=== PATIENT | female | born 1980 | race Caucasian/White ===

== ENCOUNTER 2025-03-20 16:57 | Emergency (ER) | payer OTHER ==
[2025-03-21] MEDS ORDERED: MECL25CH38 PO (05:41)
== END 2025-03-20 18:16 | disposition left against medical advice (07) ==
LOC: ER 16:57
DX: R42 Dizziness and giddiness (principal); Z53.21 Procedure and treatment not carried out due to patient leaving prior to being seen by health care provider

== ENCOUNTER 2025-03-21 04:55 | Emergency (ER) | payer OTHER ==
[~2025-03-21] VITALS: Ht 170.2 cm; Wt 114.0 kg
[2025-03-21 05:12] VITALS: TEMP 96.7
--- NOTE | 2025-03-21 05:24 | ED.PDOC ---
History of Present Illness HPI Comments 44 y/o obese F, with a history of DM and HLD, presents with 5x day history of room-spinning dizziness, with associated lightheadedness, blurry vision, and headache. Patient reports on dizziness worsening with sudden head movements. She also states on being referred to the ED for further workup after being told on having a HgB of 9.4 from a urgent care visit for symptoms, yesterday. No recent sick contacts or head injuries. Patient denies having any nausea, vomiting, fever, chills, or further associated symptoms. Chief Complaint: Dizziness Time Seen by MD: 05:10 Reviewed Notes: Nurses Notes, Medications, Allergies Allergies: Coded Allergies: NO KNOWN ALLERGIES (Unverified , 03/21/25) Home Meds Active Scripts Meclizine HCl (Meclizine) 25 Mg Chw, 25 MG PO Q6HP PRN, #30 TAB Prov:ABELARDO DRISCOLL MD 03/21/25 Information Source: Patient Mode of Arrival: Ambulatory Severity: Moderate Timing: Days Duration: Since onset Prehospital treatment: None Past Medical History PAST MEDICAL HISTORY: DM, High Lipids Surgical History: Denies all surgeries TELEPHOTO ENGINEER History: Denies all TELEPHOTO ENGINEER Hx Family History Family History: Unknown Social History Smoker: Non-Smoker Alcohol: Denies ETOH Use Drugs: Denies Drug Use Lives In: Home All Other Systems: Reviewed and Negative (As per HPI) Physical Exam General Appearance: No Apparent Distress, Obese HEENT: Normal ENT Inspection, Pharynx Normal, TMs Normal Neck: Full Range of Motion, Non-Tender, Normal, Normal Inspection Respiratory: Chest Non-Tender, Lungs Clear, No Accessory Muscle Use, No Respiratory Distress, Normal Breath Sounds Cardiovascular: No Edema, No JVD, No Murmur, No Gallop, Normal Peripheral Pulses, Regular Rate/Rhythm Breast Exam: Deferred Gastrointestinal: No Organomegaly, Non Tender, No Pulsatile Mass, Normal Bowel Sounds, Soft Genitalia: Deferred Pelvic: Deferred Rectal: Deferred Extremities: No calf tenderness, Normal capillary refill, Normal inspection, Normal range of motion, Non-tender, No pedal edema Musculoskeletal : Apperance: Normal Neurologic: Alert, cloth finishing range tender II-XII nml as Tested, No Motor Deficits, Normal Affect, Normal Mood, No Sensory Deficits Cerebellar Function: Normal Reflexes: Normal Skin: Dry, Normal Color, Warm Lymphatic: No Adenopathy Was a procedure done? Was a procedure done?: No EKG EKG : Pulse Rate (adult): 64 Pep: Normal Cardiac Rhythm: NSR Block: None Hypertrophy: None ST: Normal Differential Dx Considerations may include: Vertigo, anemia, viral syndrome, electrolyte imbalance, dehydration, among others X-Ray, Labs, Meds, VS Vital Signs Date Time Temp Pulse Resp B/P (MAP) Pulse Ox O2 Delivery O2 Flow Rate FiO2 03/21/25 07:27 73 18 98 Room Air 03/21/25 07:27 64 18 134/76 (95) 97 03/21/25 05:24 64 03/21/25 05:22 64 03/21/25 05:12 96.7 71 20 147/71 (96) 97 96.7 Lab Test 03/21/25 08:28 03/21/25 06:20 03/21/25 05:28 03/21/25 05:18 Range/Units Troponin I High Sensitivity Pending < 3 L < 3 L </=34 ng/L White Blood Count 8.0 4.4-10.8 10^3/uL Red Blood Count 4.33 4.0-5.20 10^6/uL Hemoglobin 10.3 L 12.2-16.2 g/dL Hematocrit 32.2 L 36.0-46.0 % Mean Corpuscular Volume 74.3 L 80.0-100.0 fL Mean Corpuscular Hemoglobin 23.7 L 28.0-32.0 pg Mean Corpuscular Hemoglobin Concent 31.9 L 32.0-36.0 g/dL Red Cell Distribution Width 16.3 H 11.8-14.3 % Platelet Count 338 140-450 10^3/uL Mean Platelet Volume 8.2 6.9-10.8 fL Neutrophils (%) (Auto) 56.8 37.0-80.0 % Lymphocytes (%) (Auto) 32.4 10.0-50.0 % Monocytes (%) (Auto) 5.3 0.0-12.0 % Eosinophils (%) (Auto) 4.7 0.0-7.0 % Basophils (%) (Auto) 0.8 0.0-2.0 % Neutrophils # (Auto) 4.6 1.6-8.6 10 ^3/uL Lymphocytes # (Auto) 2.6 0.4-5.4 10 ^3/uL Monocytes # (Auto) 0.4 0-1.3 10 ^3/uL Eosinophils # (Auto) 0.4 0-0.8 10 ^3/uL Basophils # (Auto) 0.1 0-0.2 10 ^3/uL Nucleated Red Blood Cells 0.2 % Sodium Level 141 136-145 mmol/L Potassium Level 4.2 3.5-5.1 mmol/L Chloride Level 105 98-107 mmol/L Carbon Dioxide Level 27 20-31 mmol/L Anion Gap 9 5-15 Blood Urea Nitrogen 12 9-23 mg/dL Creatinine 0.92 0.550-1.02 mg/dL Glomerular Filtration Rate Calc 79 >90 mL/min BUN/Creatinine Ratio 13.0 10.0-20.0 Serum Glucose 128 H 74-106 mg/dL Calcium Level 8.8 8.7-10.4 mg/dL Magnesium Level 2.1 1.6-2.6 mg/dL Urine Color Light-yellow Yellow Urine Clarity Clear Clear Urine pH 5.5 5.0-9.0 Urine Specific [place] 1.017 1.001-1.035 Urine Protein Negative Negative Urine Ketones Negative Negative Urine Blood Negative Negative /uL Urine Nitrite Negative Negative Urine Bilirubin Negative Negative Urine Urobilinogen Normal Negative mg/dL Urine Leukocyte Esterase Negative Negative /uL Urine RBC <1 0 - 4 /hpf Urine Microscopic WBC < 1 0-5 /HPF Urine Squamous Epithelial Cells Few <5 /hpf Urine Bacteria None seen None Seen /hpf Urine Glucose Normal Normal mg/dL Time of 1ST Reevaluation: 05:40 Reevaluation 1ST: Unchanged Patient Education/Counseling: Diagnosis, Treatment, Need For Follow Up Family Education/Counseling: No Family Present SEPSIS Sepsis Screen Orders/Vitals/Labs Physician Orders Electrocardigram (03/21/25 04:58) Troponin-I Hs (03/21/25 07:58) Chest Portable (03/21/25 07:20) Meclizine Tablet (Antivert Tablet) (03/21/25 08:45) Vital Signs Date Time Temp Pulse Resp B/P (MAP) Pulse Ox O2 Delivery O2 Flow Rate FiO2 03/21/25 07:27 73 18 98 Room Air 03/21/25 07:27 64 18 134/76 (95) 97 03/21/25 05:24 64 03/21/25 05:22 64 03/21/25 05:12 96.7 71 20 147/71 (96) 97 96.7 Laboratory Tests Test 03/21/25 05:28 White Blood Count 8.0 10^3/uL (4.4-10.8) Departure 1 Departure Time of Disposition: 08:44 (Patient presenting with dizziness. Patient likely has vertigo. We will discharge patient home with outpatient follow up) Impression: Primary Impression: Vertigo Disposition: 01 HOME / SELF CARE / HOMELESS Condition: Stable Additional Instructions: You likely have vertigo. Your prescribed medication. Please take as directed. It is important to stay well rested and well hydrated. Please follow up with your doctor within 1 week. e-Prescriptions Meclizine HCl (Meclizine) 25 Mg Chw 25 MG PO Q6HP PRN, #30 TAB Prov: ABELARDO DRISCOLL MD 03/21/25 Critical Care Note Critical Care Time?: No Stability Stability form required: No Heart Score Heart Score: Heart Score Response (Comments) Value History N/A 0 EKG N/A 0 Age N/A 0 Risk Factors N/A 0 Troponin N/A 0 Total 0 I personally scribed for ABELARDO DRISCOLL MD ([email or web address]) on 03/21/25 at 05:24. Electronically submitted by Gigi Ch ([email or web address]). ABELARDO DRISCOLL MD Mar 21, 2025 05:24 KRISHAN SKAGGS MD Mar 21, 2025 08:45
[2025-03-21] MEDS ORDERED: MECL25CH38 PO (05:41)
[2025-03-21 05:42] LABS: Urine Bacteria None Seen /hpf (None Seen)
[2025-03-21 06:01] LABS: Urine Blood Negative /uL (Negative); Urine Clarity Clear (Clear); Urine Color Light-Yellow (Yellow); Urine Protein, UAD Negative (Negative); Urine Specific Gravity 1.017 (1.001-1.035); Urine Squamous Epithelial Cell FEW /hpf (<5); Urine Urobilinogen Normal (Negative); Urine pH 5.5 (5.0-9.0)
[2025-03-21 06:05] LABS: Basophils # (auto) 0.1 10 ^3/uL (0-0.2); Eosinophils # (auto) 0.4 10 ^3/uL (0-0.8); Hemoglobin 10.3 g/dL (12.2-16.2); Mean Corpuscular Hemoglobin 23.7 pg (28.0-32.0); Monocytes # (auto) 0.4 10 ^3/uL (0-1.3); Red Cell Distribution Width 16.3 % (11.8-14.3)
[2025-03-21 06:08] LABS: Basophils % (auto) 0.8 % (0.0-2.0); Eosinophils % (auto) 4.7 % (0.0-7.0); Hematocrit 32.2 % (36.0-46.0); Lymphocytes # (auto) 2.6 10 ^3/uL (0.4-5.4); Lymphocytes % (auto) 32.4 % (10.0-50.0); Mean Corpuscular Hgb Conc. 31.9 g/dL (32.0-36.0); Mean Corpuscular Volume 74.3 fL (80.0-100.0); Monocytes % (auto) 5.3 % (0.0-12.0); Neutrophils # (auto) 4.6 10 ^3/uL (1.6-8.6); Neutrophils % (auto) 56.8 % (37.0-80.0); Nucleated Red Blood Cells % 0.2 %; Platelet Count (auto) 338 10^3/uL (140-450); Red Blood Cells 4.33 10^6/uL (4.0-5.20)
[2025-03-21 06:14] LABS: Chloride 105 mmol/L (98-107); Potassium 4.2 mmol/L (3.5-5.1); Sodium 141 mmol/L (136-145)
[2025-03-21 06:15] LABS: Anion Gap 9 (5-15); Carbon Dioxide 27 mmol/L (20-31)
[2025-03-21 06:16] LABS: Calcium 8.8 mg/dL (8.7-10.4)
[2025-03-21 06:21] LABS: Blood Urea Nitrogen 12 mg/dL (9-23); Glucose 128 mg/dL (74-106); Magnesium 2.1 mg/dL (1.6-2.6)
[2025-03-21 06:28] LABS: Urine WBC < 1 /HPF (0-5)
[2025-03-21 07:27] VITALS: BP 134/76; PULSE 73; RESP 18; O2SAT 98
--- NOTE | 2025-03-21 08:27 | DVH ---
XY CHEST PORTABLE, HISTORY: dizziness COMPARISON: None None TECHNICAL DATA: 1 view of the chest was obtained. FINDINGS: Lines and tubes: None Cardiomediastinal silhouette: normal Pulmonary vasculature: normal Lung expansion: normal Lung airspace: normal Lung interstitium: normal Pleura: normal Pneumothorax: no Bones: Unremarkable Other: no IMPRESSION: No acute intrathoracic abnormality.
[2025-03-21] MEDS: MECLIZINE HCL 25 MG TAB PO ONE (08:51)
--- NOTE | 2025-03-22 14:29 | ECG ---
[facility] Test Date: 2025-03-21 Test Time: 05:22:40 Pat Name: BANDAR QUINTANA Department: ED Room: Gender: F Ecdis N Navigation Operator: ABUNDIO : 1980 Requested By: ABELARDO DRISCOLL Order Number: [id number] Reading MD: Ralph Chowdhury Measurements Intervals [place] Rate: 64 P: 67 [place]: 179 QRS: 78 QRSD: 91 T: -5 QT: 393 QTc: 406 Interpretive Statements Sinus rhythm Low voltage, precordial leads Borderline T abnormalities, inferior leads Electronically Signed On 03-23-2025 21:16:51 PDT by Ralph Chowdhury Please click the below link to view image of tracing.
== END 2025-03-21 08:59 | disposition home or self-care (01) ==
LOC: ER 04:55
DX: R42 Dizziness and giddiness (principal); H53.8 Other visual disturbances; R51.9 Headache, unspecified; E11.9 Type 2 diabetes mellitus without complications; E78.5 Hyperlipidemia, unspecified
CPT/HCPCS: 36415; 71045; 80048; 81001; 83735; 84484; 85025; 93005; 99285; J8597

== ENCOUNTER 2025-09-12 15:34 | Inpatient (IN) | payer OTHER ==
[~2025-09-12] VITALS: Ht 170.2 cm; Wt 119.7 kg
[~2025-09-12 15:34] MED LIST: MECL25CH38 PO
--- NOTE | 2025-09-12 16:04 | ED.PDOC ---
History of Present Illness HPI Comments 44-year-old female presents to the ER with a prior medical history of diabetes and high lipids and a chief complaint of eye problem. Patient reports on having had a sudden onset of dizziness, headache and blurred vision which started last night onto this morning which worsened throughout the night. Checked her blood pressure this morning before work and it was at 170/91, patient states on having her blood pressure checked at work for it being 190/102. Patient states on doing a walking appointment with her PCP, for which her blood pressure "went down, and the physician stated to go to the ER if symptoms worsened or if she has a slurred speech. Patient went back to work and her co-worker asked if she drunk due from slurred speech which prompted her to come to the ER today. Patient notes on having nausea 1 hour ago. Denies any other symptoms at this time. Denies chills, fever, N/V/D, SOB, CP. No other associated symptoms, modifiers, recent injuries or sick contacts present at this time. 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 HELPER Hx Family History Family History: Reviewed,noncontributory to illness, Unknown Social History Smoker: Non-Smoker Alcohol: Denies ETOH Use Drugs: Denies Drug Use Lives In: Home Constitutional: denies: chills, diaphoresis, fatigue, fever, malaise, sweats, weakness, others EENTM: reports: blurred vision; denies: double vision, ear bleeding, ear discharge, ear drainage, ear pain, ear ringing, eye pain, eye redness, hearing loss, mouth pain, mouth swelling, nasal discharge, nose bleeding, nose congestion, nose pain, photophobia, tearing, throat pain, throat swelling, voice changes, others Respiratory: denies: cough, hemoptysis, orthopnea, SOB at rest, shortness of breath, SOB with excertion, stridor, wheezing, others Cardiovascular: denies: chest pain, dizzy spells, diaphoresis, Dyspnea on exertion, edema, irregular heart beat, left arm pain, lightheadedness, palpitations, PND, syncope, others Gastrointestinal: denies: abdomen distended, abdominal pain, blood streaked bowels, constipated, diarrhea, dysphagia, difficulty swallowing, hematemesis, melena, nausea, poor appetite, poor fluid intake, rectal bleeding, rectal pain, vomiting, others Genitourinary: denies: abnormal vagina bleeding, burning, dyspareunia, dysuria, flank pain, frequency, hematuria, incontinence, pain, , vagina discharge, urgency, others Neurological: reports: dizziness, headache, speech problems; denies: fainting, left sided numbness, left sided weakness, numbness, paresthesia, pre-existing deficit, right sided numbness, right sided weakness, seizure, tingling, tremors, weakness, others Musculoskeletal: denies: back pain, gout, joint pain, joint swelling, muscle pain, muscle stiffness, neck pain, others Integumetry: denies: bruises, change in color, change in hair/nails, dryness, laceration, lesions, lumps, rash, wounds, others Allergic/Immunocompromised: denies: Difficulty Healing, Frequent Infections, Hives, Itching, others Hematologic/Lymphatic: denies: anemia, blood clots, easy bleeding, easy bruising, swollen glands, others Endocrine: denies: excessive hunger, excessive sweating, excessive thirst, excessive urination, flushing, intolerance to cold, intolerance to heat, unexplained weight gain, unexplained weight loss, others Psychiatric: denies: anxiety, bipolar disorder, depression, hopeless, panic disorder, schizophrenia, sleepless, suicidal, others All Other Systems: Reviewed and Negative Physical Exam General Appearance: No Apparent Distress, Normal HEENT: Normal ENT Inspection, Pharynx Normal, TMs Normal Neck: Full Range of Motion, Non-Tender, Normal, Normal Inspection Respiratory: Chest Non-Tender, Lungs Clear, No Accessory Muscle Use, No Respiratory Distress, Normal Breath Sounds Cardiovascular: No Edema, No JVD, No Murmur, No Gallop, Normal Peripheral Pulses, Regular Rate/Rhythm Breast Exam: Deferred Gastrointestinal: No Organomegaly, Non Tender, No Pulsatile Mass, Normal Bowel Sounds, Soft Genitalia: Deferred Pelvic: Deferred Rectal: Deferred Extremities: No calf tenderness, Normal capillary refill, Normal inspection, Normal range of motion, Non-tender, No pedal edema Musculoskeletal : Apperance: Normal Neurologic: Alert, icer machine operator II-XII nml as Tested, No Motor Deficits, Normal Affect, Normal Mood, No Sensory Deficits Cerebellar Function: Normal Reflexes: Normal Skin: Dry, Normal Color, Warm Lymphatic: No Adenopathy Was a procedure done? Was a procedure done?: No EKG EKG : Pulse Rate (adult): 81 [place]: Normal Cardiac Rhythm: NSR Block: None Hypertrophy: None ST: Normal Differential Dx Considerations may include: ACS, CVA, viral syndrome, TIA, electrolyte abnormality X-Ray, Labs, Meds, VS Vital Signs Date Time Temp Pulse Resp B/P (MAP) Pulse Ox O2 Delivery O2 Flow Rate FiO2 09/12/25 16:04 81 09/12/25 15:55 81 09/12/25 15:36 98.5 80 18 169/95 98 98.5 Lab Test 09/12/25 17:23 09/12/25 16:32 Range/Units Troponin I High Sensitivity Pending < 3 L </=34 ng/L White Blood Count 10.2 4.4-10.8 10^3/uL Red Blood Count 4.66 4.0-5.20 10^6/uL Hemoglobin 12.5 12.2-16.2 g/dL Hematocrit 38.1 36.0-46.0 % Mean Corpuscular Volume 81.8 80.0-100.0 fL Mean Corpuscular Hemoglobin 26.8 L 28.0-32.0 pg Mean Corpuscular Hemoglobin Concent 32.7 32.0-36.0 g/dL Red Cell Distribution Width 16.2 H 11.8-14.3 % Platelet Count 340 140-450 10^3/uL Mean Platelet Volume 8.3 6.9-10.8 fL Neutrophils (%) (Auto) 62.9 37.0-80.0 % Lymphocytes (%) (Auto) 25.8 10.0-50.0 % Monocytes (%) (Auto) 5.2 0.0-12.0 % Eosinophils (%) (Auto) 5.0 0.0-7.0 % Basophils (%) (Auto) 1.1 0.0-2.0 % Neutrophils # (Auto) 6.4 1.6-8.6 10 ^3/uL Lymphocytes # (Auto) 2.6 0.4-5.4 10 ^3/uL Monocytes # (Auto) 0.5 0-1.3 10 ^3/uL Eosinophils # (Auto) 0.5 0-0.8 10 ^3/uL Basophils # (Auto) 0.1 0-0.2 10 ^3/uL Nucleated Red Blood Cells 0.0 % Sodium Level 144 136-145 mmol/L Potassium Level 4.0 3.5-5.1 mmol/L Chloride Level 107 98-107 mmol/L Carbon Dioxide Level 29 20-31 mmol/L Anion Gap 8 5-15 Blood Urea Nitrogen 15 9-23 mg/dL Creatinine 1.20 H 0.550-1.02 mg/dL Glomerular Filtration Rate Calc 58 >90 mL/min BUN/Creatinine Ratio 12.5 10.0-20.0 Serum Glucose 107 H 74-106 mg/dL Calcium Level 9.7 8.7-10.4 mg/dL B-Type Natriuretic Peptide 11.69 0-100 pg/mL Time of 1ST Reevaluation: 16:15 Reevaluation 1ST: Unchanged Patient Education/Counseling: Diagnosis, Treatment, Prognosis Family Education/Counseling: No Family Present SEPSIS Sepsis Screen Date sepsis recognized/suspect: Sep 12, 2025 Time Sepsis recognized/suspect: 1539 Recent Procedure: No On Antibiotic Therapy: No Respiratory Rate >20: No Heart Rate >90: No Temp<36 C (96.8 F) or >38.3 C: No SBP <90 or MAP <65 mmHG: No New Acute Mental Status Change: No Is the patient on CPAP, BIPAP,: No Physician Orders Urinalysis (09/12/25 15:48) Chest Portable (09/12/25 15:48) Head Without Contrast (09/12/25 15:48) Electrocardigram (09/12/25 15:48) Troponin-I Hs (09/12/25 16:48) Troponin-I Hs (09/12/25 18:48) Electrocardigram (09/12/25 16:48) Electrocardigram (09/12/25 18:48) Vital Signs Date Time Temp Pulse Resp B/P (MAP) Pulse Ox O2 Delivery O2 Flow Rate FiO2 09/12/25 16:04 81 09/12/25 15:55 81 09/12/25 15:36 98.5 80 18 169/95 98 98.5 Laboratory Tests Test 09/12/25 16:32 White Blood Count 10.2 10^3/uL (4.4-10.8) Departure 1 Departure Time of Disposition: 17:37 (Patient with a worsening dizziness and blurry vision. Patient's workup so far appears benign. We will admit patient for further workup and expert consultation) Impression: Primary Impression: Suspected transient ischemic attack Additional Impressions: Dizziness Generalized weakness Disposition: 09 ADMITTED INPATIENT Admit to: Tele Condition: Guarded Critical Care Note Critical Care Time?: No Stability Stability form required: No I personally scribed for KRISHAN SKAGGS MD ([email or web address]) on 09/12/25 at 16:03. Electronically submitted by Kameron Clark ([email or web address]). KRISHAN SKAGGS MD Sep 12, 2025 16:03
[2025-09-12 16:46] LABS: Hematocrit 38.1 % (36.0-46.0); Hemoglobin 12.5 g/dL (12.2-16.2); Mean Corpuscular Hemoglobin 26.8 pg (28.0-32.0); Mean Corpuscular Volume 81.8 fL (80.0-100.0); Nucleated Red Blood Cells % 0.0 %
--- NOTE | 2025-09-12 16:48 | DVH ---
CHEST RADIOGRAPH INDICATION: dizziness TECHNIQUE: Single frontal view of the chest was obtained COMPARISON: XY CHEST PORTABLE on DOS: 03/21/25 FINDINGS: Lines and Tubes: None Lungs: No focal consolidation. Pleura: No effusion. No pneumothorax. Cardiomediastinal contours: Unremarkable Bones: No acute osseous abnormality. IMPRESSION: No acute cardiopulmonary disease.
--- NOTE | 2025-09-12 16:50 | ECG ---
[facility] Test Date: 2025-09-12 Test Time: 15:55:27 Pat Name: BANDAR QUINTANA Department: ED Room: 0251T Gender: F Esl Professor: PURA : 1980 Requested By: SARAH BECKER Order Number: [id number] Reading MD: Ralph Chowdhury Measurements Intervals [place] Rate: 81 P: 74 [place]: 192 QRS: 80 QRSD: 82 T: -35 QT: 354 QTc: 411 Interpretive Statements Sinus rhythm Low voltage, precordial leads Borderline repolarization abnormality Baseline wander in lead(s) V2 Electronically Signed On 09-13-2025 20:11:02 PST by Ralph Chowdhury Please click the below link to view image of tracing.
[2025-09-12 16:53] LABS: Anion Gap 8 (5-15); Carbon Dioxide 29 mmol/L (20-31); Potassium 4.0 mmol/L (3.5-5.1); Sodium 144 mmol/L (136-145)
[2025-09-12 16:54] LABS: Calcium 9.7 mg/dL (8.7-10.4); Chloride 107 mmol/L (98-107)
--- NOTE | 2025-09-12 16:58 | DVH ---
EXAM: CT HEAD WITHOUT CONTRAST INDICATION: dizziness TECHNIQUE: CT of the head without intravenous contrast. Radiation Dose : 1. Head: CT Dose: CTDI volume is 61.6 mGy. Dose-length product is 1090.0 mGy*cm The dose indicators for CT are the volume Computed Tomography (CT) Dose Index (CTDIvol) and the Dose Length Product (DLP), and are measured in units of mGy and mGy-cm, respectively. These indicators are not patient dose, but values generated from the CT scanner acquisition factors. The report includes radiation exposure data for exposures received during this examination. COMPARISON: None FINDINGS: The cerebral parenchyma appears to be normal configuration and attenuation. The ventricles, cisterns, and sulci appear age-appropriate. There is no evidence for acute territorial infarct, hemorrhage, or mass effect. The orbits are normal. The visualized paranasal sinuses and mastoid air cells are clear. The soft tissues and osseous structures appear within normal limits. IMPRESSION: 1. No acute territorial infarct, intracranial hemorrhage, or mass effect. If clinical symptoms persist, MRI may be beneficial in further evaluation. Radiation optimization: All CT scans at this facility use at least one of these dose optimization techniques: automated exposure control mA and/or kV adjustment per patient size (includes targeted exams where dose is matched to clinical indication) or iterative reconstruction.
[2025-09-12 16:59] LABS: BUN/Creatinine Ratio 12.5 (10.0-20.0); Blood Urea Nitrogen 15 mg/dL (9-23); Glucose 107 mg/dL (74-106)
[2025-09-12] MEDS ORDERED: MORPHINE SULFATE 4 MG/ML SYR/VIAL IV PRN (21:00)
[2025-09-12] MEDS: SODIUM CHLORIDE 0.9% 1,000 ML IV SCH (21:00)
[2025-09-12] MEDS ORDERED: NITROGLYCERIN 0.4 MG SL TAB SL PRN (21:00)
[2025-09-12] MEDS ORDERED: DEXTROSE (50%) 50ML SYRG IV PRN (21:00)
--- NOTE | 2025-09-12 21:13 | DVHHPRES ---
History of Present Illness Resident Creating Document: JABARI SCHAFFER RESIDENT History of Present Illness This is a 44-year-old female with past medical history of DM 2, HTN, HLD, noncompliance with medication came to ER with a complaint of dizziness, headache, blurry vision that started since last night and getting worsening through out night. Patient current symptoms associated with nausea, fatigue. Patient measure her blood pressure at home systolic blood pressure 190s and decided to visit her primary care. In PCP office, Patient systolic blood pressure 200s and sent patient to ER for evaluation. Patient recently moved from [place] to [facility] and not on any medication for past month. Patient denies any skip meal, palpitation, fall or trauma. Denies any recent sick contact, travel outside or MVA. Patient lives with her family, around 1:00 p.m. the day of admission, patient noticed mild slurred in speech and came to hospital. During evaluation in ER, patient denies any fever, SOB, chest pain, headache, abdominal pain, dysuria or any focal weakness. Patient denies any angiogram done before or never seen by Cardiology. Past medical history: Dm 2, HTN, HLD, Past surgical history: Nothing contributory Family history: Mother-dm 2, HTN Personal history: Current smoker pack per week, use marijuana but denies any illicit drug or EtOH use Allergies: No known allergy PCP: Unable to recall name Meds: None. Review of Systems Constitutional: Yes: Malaise, Other (Obese); No: Fever, Chills, Sweats, [place] Eyes: No: Pain, Vision change, Conjunctivae inflammation, Eyelid inflammation, Other, Redness ENT: No: Ear pain, Ear discharge, Nose pain, Nose discharge, Nose congestion, Mouth pain, Mouth swelling, Throat pain, Throat swelling, Other Respiratory: No: Cough, Dry, Shortness of breath, SOB with excertion, Wheezing, Hemoptysis, Pleuritic Pain, Sputum, Wheezing, Other Cardiovascular: No: Chest Pain, Palpitations, Orthopnea, Paroxysmal Noc. Dyspnea, Edema, Lt Headedness, Other Gastrointestinal: Nausea; No: Vomiting, Abdominal Pain, Diarrhea, Constipation, Melena, Hematochezia, Other Genitourinary: No Dysuria, No Frequency, No Incontinence, No Hematuria, No Retention, No Other Musculoskeletal: No: other, neck pain, shoulder pain, arm pain, back pain, hand pain, leg pain, foot pain Skin: No: Rash, Lesions, Jaundice, Bruising, Other Neurological: Other (Dizziness); No: Weakness, Numbness, Incoordination, Change in speech, Confusion, Seizures Allergies: Coded Allergies: NO KNOWN ALLERGIES (Unverified , 03/21/25) Medications Current Medications Medications Dose Ordered Sig/Garfield Route Start Time Stop Time Status Last Admin Dose Admin Sodium Chloride 1,000 ml @ 100 mls/hr Q10H IV 09/12/25 21:00 UNV Enoxaparin Sodium 40 mg DAILY SC 09/13/25 10:00 UNV Acetaminophen 650 mg Q6HP PRN PO 09/12/25 21:00 UNV Nitroglycerin 0.4 mg Q5MINP PRN SL 09/12/25 21:00 UNV Morphine Sulfate 2 mg Q30M PRN IV 09/12/25 21:00 UNV Pantoprazole Sodium 40 mg DAILY@0600 PO 09/13/25 06:00 UNV Atorvastatin Calcium 40 mg HS PO 09/12/25 22:00 UNV Amlodipine Besylate 10 mg DAILY PO 09/13/25 10:00 UNV Aspirin 81 mg DAILY PO 09/13/25 10:00 UNV Exam Vital Signs Vital Signs Date Time Temp Pulse Resp B/P (MAP) Pulse Ox O2 Delivery O2 Flow Rate FiO2 09/12/25 16:04 81 09/12/25 15:36 98.5 18 169/95 98 98.5 General Appearance: Alert, Oriented X3, Cooperative, moderate distress HEENT: Atraumatic, PERRLA, EOMI Respiratory: Clear to auscultation, Normal air movement Cardiovascular: Regular rate, Normal S1, Normal S2, No murmurs Abdominal: Normal bowel sounds, Soft, No tenderness, No hepatospenomegaly Extremities: No clubbing, No cyanosis, No edema Skin: No rashes, No breakdown Neuro: Normal gait, Normal speech, Strength at 5/5 X4 ext, Normal tone, Cranial nerves 3-12 NL Psych/Mental Status: Mental status NL, Mood NL Labs/Xrays Labs Test 09/12/25 19:38 09/12/25 16:32 Range/Units Troponin I High Sensitivity < 3 L </=34 ng/L White Blood Count 10.2 4.4-10.8 10^3/uL Red Blood Count 4.66 4.0-5.20 10^6/uL Hemoglobin 12.5 12.2-16.2 g/dL Hematocrit 38.1 36.0-46.0 % Mean Corpuscular Volume 81.8 80.0-100.0 fL Mean Corpuscular Hemoglobin 26.8 L 28.0-32.0 pg Mean Corpuscular Hemoglobin Concent 32.7 32.0-36.0 g/dL Red Cell Distribution Width 16.2 H 11.8-14.3 % Platelet Count 340 140-450 10^3/uL Mean Platelet Volume 8.3 6.9-10.8 fL Neutrophils (%) (Auto) 62.9 37.0-80.0 % Lymphocytes (%) (Auto) 25.8 10.0-50.0 % Monocytes (%) (Auto) 5.2 0.0-12.0 % Eosinophils (%) (Auto) 5.0 0.0-7.0 % Basophils (%) (Auto) 1.1 0.0-2.0 % Neutrophils # (Auto) 6.4 1.6-8.6 10 ^3/uL Lymphocytes # (Auto) 2.6 0.4-5.4 10 ^3/uL Monocytes # (Auto) 0.5 0-1.3 10 ^3/uL Eosinophils # (Auto) 0.5 0-0.8 10 ^3/uL Basophils # (Auto) 0.1 0-0.2 10 ^3/uL Nucleated Red Blood Cells 0.0 % Sodium Level 144 136-145 mmol/L Potassium Level 4.0 3.5-5.1 mmol/L Chloride Level 107 98-107 mmol/L Carbon Dioxide Level 29 20-31 mmol/L Anion Gap 8 5-15 Blood Urea Nitrogen 15 9-23 mg/dL Creatinine 1.20 H 0.550-1.02 mg/dL Glomerular Filtration Rate Calc 58 >90 mL/min BUN/Creatinine Ratio 12.5 10.0-20.0 Serum Glucose 107 H 74-106 mg/dL Calcium Level 9.7 8.7-10.4 mg/dL B-Type Natriuretic Peptide 11.69 0-100 pg/mL SEPSIS Sepsis Screen Date sepsis recognized/suspect: Sep 12, 2025 Time Sepsis recognized/suspect: 1539 Recent Procedure: No On Antibiotic Therapy: No Respiratory Rate >20: No Heart Rate >90: No Temp<36 C (96.8 F) or >38.3 C: No SBP <90 or MAP <65 mmHG: No New Acute Mental Status Change: No Is the patient on CPAP, BIPAP,: No Physician Orders Urinalysis (09/12/25 15:48) Chest Portable (09/12/25 15:48) Head Without Contrast (09/12/25 15:48) Electrocardigram (09/12/25 15:48) Electrocardigram (09/12/25 16:48) Electrocardigram (09/12/25 18:48) Admit (09/12/25 20:48) Code Status (09/12/25 20:48) Sodium Chloride 0.9% (09/12/25 21:00) Enoxaparin Sodium (Lovenox) (09/13/25 10:00) Echo 2d Mode Cardiac Dop (09/12/25 20:48) Acetaminophen Tablet (Tylenol Tablet) (09/12/25 21:00) Nitroglycerin Sublingual (Ntrostat Subli (09/12/25 21:00) Morphine Sulfate Injection (09/12/25 21:00) Oxygen By Nasal Cannula (09/12/25 20:48) Stat Ekg For Chest Pain (09/12/25 20:48) Notify Md Of Changes From Base (09/12/25 20:48) Automatic Lathe Tender For 24 Hours (09/12/25 20:48) Emergency Dysrhythmia Protocol (09/12/25 20:48) Rhythm Strips Once Every Shift (09/12/25 20:48) Pantoprazole Tablet (Protonix Tablet) (09/13/25 06:00) Atorvastatin (Lipitor) (09/12/25 22:00) Amlodipine Tablet (Norvasc Tablet) (09/12/25 21:00) Amlodipine Tablet (Norvasc Tablet) (09/13/25 10:00) Aspirin Enteric Coated Tablet (Ecotrin E (09/13/25 10:00) Carotid Duplx W Color Dop (09/12/25 20:48) Consistent Carb(Ccho)Diabetes (09/13/25 Breakfast) Glucose Blood (Accu-Chek Comfort Curve T (09/12/25 22:00) Mild Sliding Scale (09/12/25 22:00) Dextrose 50% Syringe (09/12/25 21:00) Vital Signs Date Time Temp Pulse Resp B/P (MAP) Pulse Ox O2 Delivery O2 Flow Rate FiO2 09/12/25 16:04 81 09/12/25 15:55 81 09/12/25 15:36 98.5 80 18 169/95 98 98.5 Laboratory Tests Test 09/12/25 16:32 White Blood Count 10.2 10^3/uL (4.4-10.8) Assessment/Plan Assessment/Plan Hypertensive emergency Suspected TIA Patient home systolic blood pressure 200s During admission blood pressure 169/95 EKG: Sinus rhythm, HR 81, QTC 411, no acute ST changes. BNP 11.16, Troponin: <3 and repeat troponin<3 CXR: No acute cardiopulmonary disease CTA head: No acute intracranial abnormality or hemorrhage Amlodipine Carotid ultrasound Monitor blood pressure Telemetry KOLTON due to vasomotor nephropathy Creatinine 1.20, EGFR 50 IVF Avoid nephrotoxic drugs Type 2 diabetes mellitus Hyperlipidemia Atorvastatin Insulin sliding scale Avoid sugar and sugar containing foods Hemoglobin A1c Lipid profile Current smoker Use marijuana Counseling done>13 minutes spent Morbid obesity, BMI 41.3 Lifestyle modification Diet: Cardiac GI prophylaxis: Pantoprazole DVT prophylaxis: Lovenox Goals of care discussion. More than 27 minute spent with patient. Full code status. Case discussed with Dr. Davila Plan discussed with: Patient, Other (Nurse) My Orders Orders - JABARI SCHAFFER RESIDENT Procedure Category Date Status Time Admit ADMIT 09/12/25 Transmitted 20:48 Code Status CODE 09/12/25 Transmitted 20:48 Sodium Chloride 0.9% PHA 09/12/25 Logged 21:00 Enoxaparin Sodium PHA 09/13/25 Logged (Lovenox) 10:00 Echo 2d Mode Cardiac US 09/12/25 Logged DOP 20:48 Acetaminophen Tablet PHA 09/12/25 Logged (Tylenol Tablet) 21:00 Nitroglycerin PHA 09/12/25 Logged Sublingual (Ntrostat 21:00 Morphine Sulfate PHA 09/12/25 Transmitted Injection 21:00 Oxygen By Nasal RT 09/12/25 Transmitted Cannula 20:48 Stat Ekg For Chest LINDA 09/12/25 In Process Pain 20:48 Notify Md Of Changes LINDA 09/12/25 In Process From Base 20:48 Automatic Lathe Tender For LINDA 09/12/25 In Process 24 Hours 20:48 Emergency Dysrhythmia [facility] 09/12/25 In Process Protocol 20:48 Rhythm Strips Once [facility] 09/12/25 In Process Every Shift 20:48 Pantoprazole Tablet PHA 09/13/25 Transmitted (Protonix Tablet) 06:00 Atorvastatin (Lipitor) PHA 09/12/25 Transmitted 22:00 Amlodipine Tablet PHA 09/12/25 Transmitted (Norvasc Tablet) 21:00 Amlodipine Tablet PHA 09/13/25 Transmitted (Norvasc Tablet) 10:00 Aspirin Enteric PHA 09/13/25 Transmitted Coated Tablet 10:00 Carotid Duplx W Color US 09/12/25 Logged DOP 20:48 Consistent DIET 09/13/25 Transmitted Carb(Ccho)Diabetes Breakfast Glucose Blood PHA 09/12/25 Transmitted (Accu-Chek Comfort 22:00 Mild Sliding Scale PHA 09/12/25 Transmitted 22:00 Dextrose 50% Syringe PHA 09/12/25 Transmitted 21:00 Visit Coding STANDARD RES Billing Provider: LEWIS DAVILA MD Date of Service if different f: Sep 12, 2025 Common Visit Codes: 25591-[id number] INP/OBS CARE (HIGH) Secondary Visit Codes: [id number] CARE PLAN 30 MINUTES JABARI SCHAFFER RESIDENT Sep 12, 2025 21:13
[2025-09-12] MEDS: ATORVASTATIN 20 MG TAB PO SCH (22:00)
[2025-09-12] MEDS: ACCU-CHEK COMFORT CURVE STRIP VI SCH (22:00)
[2025-09-12] MEDS: InsuLIN REG 1unit/0.01ml Soln (100units/ml) SC SCH (22:00)
--- NOTE | 2025-09-12 22:42 | DVH ---
US CAROTID DUPLX W COLOR DOP HISTORY: Rule out dizziness COMPARISON: None TECHNIQUE: Jiménez-scale, Color and Duplex Doppler imaging of the bilateral carotid systems was performed. FINDINGS: No significant plaque present in the carotid bulbs. The following flow velocities were obtained: Right Carotid System: ICA PSV: 75 cm/sec ICA PDV: 34 cm/sec ICA/CCA Ratio: 1.2 Left Carotid System: ICA PSV: 95 cm/sec ICA PDV: 39 cm/sec ICA/CCA Ratio: 1.2 Bilateral common carotid, external carotid arteries, and vertebral arteries are patent. IMPRESSION: RIGHT ICA STENOSIS PER *SRU CRITERIA: NO SIGNIFICANT STENOSIS. LEFT ICA STENOSIS PER *SRU CRITERIA: NO SIGNIFICANT STENOSIS. Estimation of carotid stenosis is based on velocity parameters that correlate the residual internal carotid diameter with that of the more distal vessel in accordance with the [place] Symptomatic Carotid Endarterectomy Trial (NASCET)
[2025-09-12 22:46] VITALS: PULSE 76; RESP 16; O2SAT 96
[2025-09-13] VITALS (8 sets, daily range): BP systolic 116–127; BP diastolic 60–88; PULSE 66–80; RESP 16–22; TEMP 97.4–98.7; O2SAT 18–99
[2025-09-13] MEDS: PANTOPRAZOLE 40 MG TAB PO SCH (05:49)
[2025-09-13 06:43] LABS: Hematocrit 36.5 % (36.0-46.0); Hemoglobin 12.1 g/dL (12.2-16.2); Mean Corpuscular Hemoglobin 27.1 pg (28.0-32.0); Mean Corpuscular Volume 81.7 fL (80.0-100.0); Nucleated Red Blood Cells % 0.2 %
[2025-09-13 06:50] LABS: Alanine Aminotransferase 24 U/L (7-40); Albumin 4.2 g/dL (3.2-4.8); Alkaline Phosphatase 82 U/L (46-116); Anion Gap 11 (5-15); BUN/Creatinine Ratio 13.4 (10.0-20.0); Blood Urea Nitrogen 11 mg/dL (9-23); Calcium 9.0 mg/dL (8.7-10.4); Carbon Dioxide 23 mmol/L (20-31); Potassium 3.8 mmol/L (3.5-5.1); Sodium 142 mmol/L (136-145); Total Protein 6.9 g/dL (5.7-8.2); Triglycerides 142 mg/dL (< 150)
[2025-09-13 06:51] LABS: HDL Cholesterol 54 mg/dL (40-59)
[2025-09-13 06:53] LABS: Bilirubin, Total 0.3 mg/dL (0.2-1.0); Chloride 108 mmol/L (98-107); Cholesterol 205 mg/dL (< 200); Glucose 127 mg/dL (74-106)
[2025-09-13] MEDS: ENOXAPARIN SOD 40 MG/0.4 ML SYRINGE SC SCH (09:55)
[2025-09-13] MEDS: ASPirin-EC 81 mg tab PO SCH (09:56)
[2025-09-13] MEDS: ACETAMINOPHEN 325 MG TAB PO PRN (10:02)
--- NOTE | 2025-09-13 10:14 | DVHPNRES ---
Progress Note Date Seen: Sep 13, 2025 Resident Creating Document: STEFANIA GUADALUPE RESIDENT Medical Necessity Reason Pt with a Central, PICC or Fol: No Subjective Review of Systems Rosario Arriola is a 44-year-old female with past medical history of obstructive sleep apnea, hypertension, dyslipidemia, diabetes mellitus who presented to the hospital with complaints of dizziness, blurry vision since last day morning. 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 She visited her PCP and blood pressure measured in the office was 200/100. She also complains of associated slurring of speech. She denies any weakness, eyelid or angle of mouth drooping. She lives in [place] with family. Patient reports that she was not on any medication for the past 4 months because of a lack of insurance. Previous hospitalization: PMHx: obstructive sleep apnea, hypertension, dyslipidemia, diabetes mellitus PSHx: Not relevant Family history: History of diabetes mellitus in mother Social history: 5 pack-year smoking history, active, occasional alcohol and marijuana use Home medication: Not on any home medications Allergic history: Metformin General: patient denies fever, fatigue, weaknes, sweating, any recent changes in appetite and weight HEENT: No headaches, visiual changes, hearing loss, tinnitus, nasal congestion and discharge, and sore throat. Cardiovascular: Denies chest pain, palpitations, dyspnea on exertion, orthopnea, or claudication. Respiratory: No cough, and wheezing. Gastrointestinal: Denies nausea, vomiting, dysphagia, odynophagia, heartburn, abdominal pain, flatulence, bloating, diarrhea, constipation, change in stool, or blood in stool. Genitourinary: No dysuria, hematuria, discharge, frequency, urgency, nocturia, incontinence, and urinary retention. Endocrine: No heat or cold intolerance, polydipsia, polyuria, and polyphagia. Neurological: No dizziness, extremity weakness and numbness, tremors, gait disturbance, seizures, and memory impairment. Psychiatric: Denies depression, anxiety,or insomnia. Musculoskeletal: Denies neck pain, stiffness and swelling, back pain, muscle weakness, joint pain, stiffness, swelling, or limited range of motion. Skin: No rashes, itching, skin lesion, changes in hair, nail, skin texture and breast. Hematologic/Lymphatic: Denies easy bruising, bleeding tendencies, or lymph node enlargement. Objective vital signs Vital Sign Date Time Temp Pulse Resp B/P (MAP) Pulse Ox O2 Delivery O2 Flow Rate FiO2 09/13/25 09:56 116/76 09/13/25 09:23 66 17 99 09/13/25 05:00 98.7 98.7 09/13/25 00:04 Room Air* 0 21 medications Current Medications Medications Dose Ordered Sig/Garfield Route Start Time Stop Time Status Last Admin Dose Admin Sodium Chloride 1,000 ml @ 100 mls/hr Q10H IV 09/12/25 21:00 09/12/25 21:00 100 MLS/HR Enoxaparin Sodium 40 mg DAILY SC 09/13/25 10:00 09/13/25 09:55 40 MG Acetaminophen 650 mg Q6HP PRN PO 09/12/25 21:00 Nitroglycerin 0.4 mg Q5MINP PRN SL 09/12/25 21:00 Morphine Sulfate 2 mg Q30M PRN IV 09/12/25 21:00 Pantoprazole Sodium 40 mg DAILY@0600 PO 09/13/25 06:00 Atorvastatin Calcium 40 mg HS PO 09/12/25 22:00 09/12/25 22:00 40 MG Amlodipine Besylate 10 mg DAILY PO 09/13/25 10:00 09/13/25 09:56 10 MG Aspirin 81 mg DAILY PO 09/13/25 10:00 09/13/25 09:56 81 MG Diagnostic Test (Pha) 1 strip ACHS 09/12/25 22:00 09/13/25 05:49 1 STRIP Insulin Human Regular ACHS SC 09/12/25 22:00 09/13/25 06:05 2 UNITS Dextrose 50 ml UD PRN IV 09/12/25 21:00 Examination General Appearance: Alert, Oriented X3, Cooperative, No acute distress HEENT: Atraumatic, PERRLA, EOMI, Mucous membrane moist/pink Respiratory: Clear to auscultation, Normal air movement Cardiovascular: Regular rate, Normal S1, Normal S2, No murmurs, no chest wall tenderness Abdominal: Normal bowel sounds, Soft, No tenderness, No hepatospenomegaly, No masses Extremities: No clubbing, No cyanosis, No edema, Normal pulses, No tenderness/swelling Skin: No rashes, No breakdown, No significant lesion Neuro: Normal gait, Normal speech, Strength at 5/5 X4 ext, Normal tone, Sensation intact, Cranial nerves 3-12 NL, Reflexes 2+ Psych/Mental Status: Mental status NL, Mood NL laboratory and microbiology Laboratory Tests 09/13/25 05:38 Test 09/13/25 05:38 Range/Units Serum Glucose 127 H 74-106 mg/dL Problem List/Assessment/Plan Problem List/Assessment/Plan Assessment/Plan TIA Hypertensive emergency obstructive sleep apnea ABCD score 4 Patient PCP office systolic blood pressure 200s During admission blood pressure 169/95 EKG: Sinus rhythm, HR 81, QTC 411, no acute ST changes. BNP 11.16, Troponin: <3 and repeat troponin<3 CXR: No acute cardiopulmonary disease CTA head: No acute intracranial abnormality or hemorrhage Amlodipine Carotid ultrasound Monitor blood pressure Telemetry Plavix 75 mg for 21 days Atorvastatin 81 mg to continue Coenzyme Q10 on discharge Convert to rosuvastatin on discharge continue CPAP at home KOLTON due to vasomotor nephropathy Creatinine 1.20, EGFR 50 IVF Avoid nephrotoxic drugs Morbid obesity, BMI 41.3 Lifestyle modification counseled on weight loss for 13 minutes Type 2 diabetes mellitus Hyperlipidemia Atorvastatin Insulin sliding scale Avoid sugar and sugar containing foods Hemoglobin A1c Lipid profile Current smoker active marijuana use Counseling done>13 minutes spent Normocytic anemia Follow up with PCP on discharge Diet: Cardiac GI prophylaxis: Pantoprazole DVT prophylaxis: Lovenox Goals of care Full code status. Case discussed with Dr. Ghotra Plan discussed with: Patient Date of Service: Sep 13, 2025 Billing Provider: XOCHITL NUGENT MD Common Visit Codes: [id number] INP/OBS CARE(HIGH) STEFANIA GUADALUPE RESIDENT Sep 13, 2025 10:14
[2025-09-13] MEDS: CLOPIDOGREL BISULFATE 75 MG TAB PO ONE (15:52)
[2025-09-13 16:56] LABS: Urine Protein, UAD Negative (Negative)
[2025-09-13 17:07] LABS: Amphetamine Screen, Urine Neg (NEGATIVE); Barbiturate Scree,Urine Neg (NEGATIVE); Benzodiazephine Screen, Urine Neg (NEGATIVE); Cannabinoid Screen, Urine Neg (NEGATIVE); Cocaine Screen, Urine Neg (NEGATIVE); Opiate Scree,Urine Neg (NEGATIVE); Phencyclidine Screen, Urine Neg (NEGATIVE)
[2025-09-13] MEDS ORDERED: ERGOCALCIFEROL 50,000 UNIT(1.25MG) CAP PO SCH (22:15)
[2025-09-14 01:00] VITALS: BP 124/74; PULSE 62; RESP 16; TEMP 98; O2SAT 97
[2025-09-14 05:00] VITALS: BP 127/77; PULSE 62; RESP 16; TEMP 97.9; O2SAT 97
[2025-09-14 07:20] LABS: Hematocrit 36.1 % (36.0-46.0); Hemoglobin 12.0 g/dL (12.2-16.2); Mean Corpuscular Hemoglobin 27.4 pg (28.0-32.0); Mean Corpuscular Volume 82.1 fL (80.0-100.0); Nucleated Red Blood Cells % 0.1 %
[2025-09-14 07:31] LABS: Alanine Aminotransferase 23 U/L (7-40); Albumin 4.1 g/dL (3.2-4.8); Alkaline Phosphatase 75 U/L (46-116); Anion Gap 10 (5-15); BUN/Creatinine Ratio 14.3 (10.0-20.0); Blood Urea Nitrogen 10 mg/dL (9-23); Calcium 9.1 mg/dL (8.7-10.4); Carbon Dioxide 26 mmol/L (20-31); Potassium 4.4 mmol/L (3.5-5.1); Sodium 143 mmol/L (136-145); Total Protein 6.8 g/dL (5.7-8.2)
[2025-09-14 07:32] LABS: Bilirubin, Total 0.5 mg/dL (0.2-1.0); Chloride 107 mmol/L (98-107); Glucose 108 mg/dL (74-106)
[2025-09-14 08:00] VITALS: PULSE 67
[2025-09-14] MEDS: CLOPIDOGREL BISULFATE 75 MG TAB PO SCH (08:48)
[2025-09-14 09:00] VITALS: BP 127/84; PULSE 71; RESP 17; TEMP 98; O2SAT 95
[2025-09-14] MEDS: ERGOCALCIFEROL 50,000 UNIT(1.25MG) CAP PO SCH (10:48)
[2025-09-14] MEDS ORDERED: CLOP75TA28 PO (13:00)
[2025-09-14] MEDS ORDERED: ASPI-498 OR (13:00)
[2025-09-14] MEDS ORDERED: AMLO1TAB23 PO (13:00)
--- NOTE | 2025-09-14 13:51 | DVHDSRES ---
Discharge Summary Date of Admission Resident Creating Document: STEFANIA GUADALUPE RESIDENT Sep 12, 2025 at 20:48 Date of Discharge: Sep 14, 2025 Labs/Diagnostic Data: Laboratory Results Test 09/14/25 11:07 09/14/25 06:42 09/13/25 16:22 09/13/25 05:38 POC Glucose 96 mg/dl (70-106) White Blood Count 7.4 10^3/uL (4.4-10.8) Red Blood Count 4.40 10^6/uL (4.0-5.20) Hemoglobin 12.0 g/dL (12.2-16.2) Hematocrit 36.1 % (36.0-46.0) Mean Corpuscular Volume 82.1 fL (80.0-100.0) Mean Corpuscular Hemoglobin 27.4 pg (28.0-32.0) Mean Corpuscular Hemoglobin Concent 33.3 g/dL (32.0-36.0) Red Cell Distribution Width 15.8 % (11.8-14.3) Platelet Count 317 10^3/uL (140-450) Mean Platelet Volume 8.2 fL (6.9-10.8) Neutrophils (%) (Auto) 58.3 % (37.0-80.0) Lymphocytes (%) (Auto) 31.3 % (10.0-50.0) Monocytes (%) (Auto) 4.8 % (0.0-12.0) Eosinophils (%) (Auto) 5.1 % (0.0-7.0) Basophils (%) (Auto) 0.5 % (0.0-2.0) Neutrophils # (Auto) 4.3 10 ^3/uL (1.6-8.6) Lymphocytes # (Auto) 2.3 10 ^3/uL (0.4-5.4) Monocytes # (Auto) 0.4 10 ^3/uL (0-1.3) Eosinophils # (Auto) 0.4 10 ^3/uL (0-0.8) Basophils # (Auto) 0 10 ^3/uL (0-0.2) Nucleated Red Blood Cells 0.1 % Sodium Level 143 mmol/L (136-145) Potassium Level 4.4 mmol/L (3.5-5.1) Chloride Level 107 mmol/L (98-107) Carbon Dioxide Level 26 mmol/L (20-31) Anion Gap 10 (5-15) Blood Urea Nitrogen 10 mg/dL (9-23) Creatinine 0.70 mg/dL (0.550-1.02) Glomerular Filtration Rate Calc 110 mL/min (>90) BUN/Creatinine Ratio 14.3 (10.0-20.0) Serum Glucose 108 mg/dL (74-106) Calcium Level 9.1 mg/dL (8.7-10.4) Total Bilirubin 0.5 mg/dL (0.2-1.0) Aspartate Amino Transferase (AST) 21 U/L (13-40) Alanine Aminotransferase (ALT) 23 U/L (7-40) Alkaline Phosphatase 75 U/L (46-116) Total Protein 6.8 g/dL (5.7-8.2) Albumin 4.1 g/dL (3.2-4.8) Urine Color Light-yellow (Yellow) Urine Clarity Clear (Clear) Urine pH 6.5 (5.0-9.0) Urine Specific [place] 1.024 (1.001-1.035) Urine Protein Negative (Negative) Urine Ketones Negative (Negative) Urine Blood 1+ /uL (Negative) Urine Nitrite Negative (Negative) Urine Bilirubin Negative (Negative) Urine Urobilinogen Normal mg/dL (Negative) Urine Leukocyte Esterase Negative /uL (Negative) Urine RBC 2 /hpf (0 - 4) Urine Microscopic WBC < 1 /HPF (0-5) Urine Squamous Epithelial Cells Few /hpf (<5) Urine Bacteria None seen /hpf (None Seen) Urine Glucose Normal mg/dL (Normal) Urine Opiates Screen Neg (NEGATIVE) Urine Fentanyl Screen Neg (NEGATIVE) Urine Barbiturates Screen Neg (NEGATIVE) Urine Phencyclidine Screen Neg (NEGATIVE) Urine Amphetamines Screen Neg (NEGATIVE) Urine Benzodiazepines Screen Neg (NEGATIVE) Urine Cocaine Screen Neg (NEGATIVE) Urine Cannabinoids Screen Neg (NEGATIVE) Hemoglobin A1c 6.3 % A1C (<5.7) Triglycerides Level 142 mg/dL (< 150) Cholesterol Level 205 mg/dL (< 200) LDL Cholesterol 125 mg/dL (< 100) HDL Cholesterol 54 mg/dL (40-59) Vitamin B12 Level 326 pg/mL (211-911) Vitamin D 25-Hydroxy 21.8 ng/mL (30.0-100) Thyroid Stimulating Hormone (TSH) 3.18 uIU/mL (0.55-4.78) Test 09/12/25 19:38 09/12/25 16:32 Troponin I High Sensitivity < 3 ng/L (</=34) B-Type Natriuretic Peptide 11.69 pg/mL (0-100) Other Laboratory Tests 09/14/25 06:42 Brief Hx & Hospital Course: Rosario Arriola is a 44-year-old female with past medical history of obstructive sleep apnea, hypertension, dyslipidemia, diabetes mellitus who presented to the hospital with complaints of dizziness, blurry vision since last day morning. 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 She visited her PCP and blood pressure measured in the office was 200/100. She also complains of associated slurring of speech. She denies any weakness, eyelid or angle of mouth drooping. She lives in [place] with family. Patient reports that she was not on any medication for the past 4 months because of a lack of insurance.Labs revealed elevated creatinine levels, cholesterol levels, vitamin-D deficiency. Chest x-ray showed no acute cardiopulmonary disease. Head CT was normal. Carotid Doppler ultrasound revealed no significant stenosis. Blood pressure was controlled and her symptoms lasted for a few hours. Patient was started on aspirin, Plavix for 21 days and antihypertensive. During the course of the hospitalization, the patient improved clinically and is hence being discharged. Condition at Discharge: Fair Final Diagnosis/Problems List Hypertensive emergency TIA KOLTON due to vasomotor nephropathy Morbid obesity, BMI 41.3 obstructive sleep apnea Type 2 diabetes mellitus Hyperlipidemia Current smoker active marijuana use Normocytic anemia Discharge Disposition: Home Discharge Instruct/Medications Diet: Cardiac 2g Na,low cholest Activity: No Restrictions, As Tolerated Follow Up/Referral: Follow up with PCP in 7 days Follow up with neurologist in 7 days Medications: As per EHR Scheduled Amlodipine Besylate (Amlodipine Besylate), 10 MG PO DAILY Aspirin (Aspirin 81), 81 MG OR DAILY Clopidogrel Bisulfate (Plavix), 75 MG PO DAILY Discharge Statement: "Patient was advised to return to the ER or call 911 if any headaches, dizziness, shortness of breath, chest pain, abdominal pain, bleeding, fevers, or worsening of medical condition. Patient was counseled about treatment plan, medications, possible side effects, patientverbalized understanding. All questions were answered to the best of my ability. This discharge took greater then 30 minutes in planning, reviewing documentation, counseling the patient, and discussing with other team members." ASSESSMENT ASSESSMENT Assessment TIA Hypertensive emergency Visit Coding STANDARD RES Billing Provider: DEBBIE PERSAUD DO Date of Service if different f: Sep 14, 2025 Common Visit Codes: 81294-GZB/OBS DISCH DAY >30min STEFANIA GUADALUPE Sep 14, 2025 13:50 DEBBIE PERSAUD DO Sep 16, 2025 23:30
[2025-09-14 14:14] VITALS: BP 132/80; PULSE 73; RESP 17; TEMP 98.1; O2SAT 97
--- NOTE | 2025-09-14 21:14 | DVHSR ---
APPROVED REPORT EXAM: Two-dimensional and M-mode echocardiogram with Doppler and color Doppler. Blood Pressure: 127/77 mmHg INDICATION RUle out cardiac Dx RISK FACTORS Height: 67, Weight: 263 DIMENSIONS LVDd 4.9 (3.8-5.7cm) LA (2D) 4.8 (1.9-4.0cm) Aortic Root 3.6 (2.0-3.7cm) LVDs 3.5 (2.5-4.0cm) LA (MM) (1.9-4.0cm) Aortic Cusp Exc 2.0 (1.5-2.0cm) EF (%) 55.0 (55-70%) Rt. Atrium 4.3 (1.9-4.0cm) Asc. Aorta cm Mitral Valve Mitral Mitral Stenosis E wave 0.95m/s MV Mean GR. mmHg A wave 1.01m/s MV Peak GR. mmHg E/A ratio 0.9 2D MVA cm2 DECEL Time 275ms PRESS 1/2 Time 82ms IVRT ms Dop MVA 2.67cm2 Aortic Valve Aortic Valve Aortic Stenosis V1 0.97m/s AO Mean GR. 4mmHg V2 1.22m/s AO Peak GR. 6mmHg LVOT Diameter 2.2 (1.8-2.4cm) Doppler MONAE 3.02cm2 Pulmonic Valve V2 1.04m/s Tricuspid Valve TR Velocity 2.03m/s RVSP 22mmHg Conclusion LV EF IS 65% NORMAL RV FUNCTION NORMAL VALVES NO EFFUSION
== END 2025-09-14 14:38 | disposition home or self-care (01) | DRG 47 ==
LOC: ER 15:34 → OVERFLOW 20:48 → TELE-EAST 09-13 17:32
PROVIDERS: ADMIT Internal Medicine; ATTEND Internal Medicine
DX: G45.9 Transient cerebral ischemic attack, unspecified (principal); N17.0 Acute kidney failure with tubular necrosis; I16.1 Hypertensive emergency; E11.9 Type 2 diabetes mellitus without complications; E66.01 Morbid (severe) obesity due to excess calories; D64.9 Anemia, unspecified; E78.5 Hyperlipidemia, unspecified; I10 Essential (primary) hypertension; G47.33 Obstructive sleep apnea (adult) (pediatric); F17.200 Nicotine dependence, unspecified, uncomplicated; F12.90 Cannabis use, unspecified, uncomplicated; Z82.49 Family history of ischemic heart disease and other diseases of the circulatory system; Z83.3 Family history of diabetes mellitus; Z68.41 Body mass index [BMI] 40.0-44.9, adult; Z88.8 Allergy status to other drugs, medicaments and biological substances
CPT/HCPCS: 36415; 70450; 71045; 80048; 80053; 80061; 80307; 81001; 82306; 82607; 82962; 83036; 83880; 84443; 84484; 85025; 93005; 93306; 93886; G0378; J1815